=== PATIENT | male | born 1950 | race Caucasian/White ===

== ENCOUNTER 2019-04-07 10:31 | Outpatient (CLI) | payer OTHER, SELFPAY ==
--- NOTE | 2019-04-07 10:42 | MR_ITS ---
WS: [id number] MRI LUMBAR SPINE NONCONTRAST TECHNIQUE: Sagittal T1, T2 and STIR imaging. Axial T1 and T2 imaging. CLINICAL INFORMATION: LOW BACK PAIN COMPARISON: None. FINDINGS: Exaggeration normal lumbar lordosis. Reversal normal lumbar lordosis at the thoracolumbar junction. C hronic appearing anterior wedging with partial ankylosis at T10-T12. Focal kyphosis at this level. Mi ld chronic compression superior endplate L4 with fatty marrow changes. Severe spinal canal narrowing L4-5 L1-L2: Mild annular bulging with slight effacement of ventral thecal sac. Narrowing of the subarticul ar recess. Mild facet arthropathy. Foramen are patent. L2-L3: Mild annular bulging with narrowing of the left subarticular recess. Moderate facet arthropath y. Mild left and no significant right foraminal narrowing. L3-L4: Mild annular bulging with a small central disc protrusion. Moderate central canal stenosis. Mi ld right and no significant left foraminal narrowing. Moderate facet arthropathy. L4-L5: Mild disc bulging in combination with facet arthropathy and ligament flavum hypertrophy result s in severe central canal stenosis. Small bilateral facet effusions. Severe right and mild left danita inal narrowing. Small far right lateral 7 mm synovial cyst does not significantly affect the thecal s ac or nerve roots. L5-S1: Mild annular bulging with slight impingement on traversing right greater than left S1 nerve ro ot nerve roots. Mild right and no significant left foraminal narrowing. Small left lateral synovial c yst measuring 9 mm contacts the far exiting left L5 nerve root. Moderate facet arthropathy. Left renal cyst. Mild chronic biconcave compression at T6 seen on the [employer] imaging. MR/MR lumbar spine wo con* [id number] IMPRESSION: 1. Chronic compression with anterior wedging at T11-T12 with partial ankylosis . This results in focal kyphosis at the T10-T12 levels. 2. Severe central canal stenosis L4-5 due to disc bulging with facet arthropat hy and ligamentum flavum flavum hypertrophy. 3. Right foraminal disc protrusion with severe right L4-5 foraminal narrowing. 4. Disc bulging L5-S1 impinges the right S1 nerve root with mild right foramin al narrowing. 5. 9 mm synovial cyst L5-S1 slightly contacts the exiting left L5 nerve root. 6. Moderate central canal stenosis L3-4 with a small central disc protrusion.
== END 2019-04-07 10:32 | disposition home or self-care (01) ==
LOC: RADWPI 10:38
PROVIDERS: Family Provider Emergency Medicine Emergency Medical Services; PCP Emergency Medicine Emergency Medical Services; Visit Provider Emergency Medicine Emergency Medical Services
DX: M43.24 Fusion of spine, thoracic region (principal); M48.061 Spinal stenosis, lumbar region without neurogenic claudication; M51.26 Other intervertebral disc displacement, lumbar region; M71.38 Other bursal cyst, other site
CPT/HCPCS: 72148

== ENCOUNTER 2020-03-22 15:10 | Outpatient (CLI) | payer OTHER, SELFPAY ==
--- NOTE | 2020-03-22 15:19 | USCV_ITS ---
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 Mild atheromatous plaque right carotid bulb/ICA. Left ICA stenosis <50%. Mild atheromatous plaque left carotid bulb/ICA. Normal antegrade Doppler flow noted in the right vertebral artery. Normal antegrade Doppler flow noted in the left vertebral artery. Anthony Garcia MD (Electronically Signed) Final Date: 22 March 2020 17:06 S
== END 2020-03-22 15:11 | disposition home or self-care (01) ==
PROVIDERS: Family Provider Emergency Medicine Emergency Medical Services; PCP Emergency Medicine Emergency Medical Services; Visit Provider Emergency Medicine Emergency Medical Services
DX: H91.91 Unspecified hearing loss, right ear (principal); I65.23 Occlusion and stenosis of bilateral carotid arteries
CPT/HCPCS: 93880

== ENCOUNTER 2021-06-16 13:46 | Outpatient (CLI) | payer OTHER, SELFPAY ==
--- NOTE | 2021-06-16 13:59 | MR_ITS ---
WS: [id number] MRI LUMBAR SPINE NONCONTRAST TECHNIQUE: Sagittal T1, T2 and STIR imaging. Axial T1 and T2 imaging. CLINICAL INFORMATION: LOW BACK PAIN COMPARISON: MRI April 07, 2019 FINDINGS: Exaggeration normal lumbar lordosis. Reversal normal lumbar lordosis at the thoracolumbar junction un changed. Chronic appearing anterior wedging with partial ankylosis at T10-T12. Focal kyphosis at this level unchanged from 2020. Mild chronic compression superior endplate L4 is stable. No new compressi on. Severe spinal canal narrowing L4-5 L1-L2: Mild annular bulging with slight effacement of ventral thecal sac. Narrowing of the subarticul ar recess bilaterally. Mild facet arthropathy. Foramen are patent. L2-L3: Mild annular bulging. Slight effacement of ventral thecal sac. Mild narrowing of the subarticu lar recess bilaterally. Mild to moderate facet arthropathy. Foramen are patent. L3-L4: Mild annular bulging with moderate central canal stenosis. Moderate facet arthropathy with lig amentum flavum flavum hypertrophy. Moderate RIGHT and mild LEFT foraminal narrowing. L4-L5: Severe central canal stenosis slightly progressed compared to April 07, 2019. Almost complet e effacement of the thecal sac. Advanced facet arthropathy with ligamentum flavum hypertrophy. Imping ement traversing L5 nerve roots bilaterally. Moderate RIGHT and mild to moderate LEFT foraminal narro wing. L5-S1: Mild disc bulging eccentric to the RIGHT. Slight contact of the traversing RIGHT S1 nerve root . Moderate facet arthropathy. Mild RIGHT and no significant LEFT foraminal narrowing. Far lateral 9 m m synovial cyst slightly encroaches on the far exiting LEFT L5 nerve root unchanged. Partially visualized LEFT renal cyst measuring 3.1 cm. Visualized pelvic bony structures: Normal. Paravertebral soft tissues: Normal. Mild chronic compression superior endplate T6 is unchanged. MR/MR lumbar spine wo con* [id number] IMPRESSION: 1. Severe central canal stenosis L4-L5 with near complete effacement of the th ecal sac is progressed slightly compared to March 30, 2019. Recommend neurosu rgery consultation. 2. Moderate RIGHT L4-L5 foraminal narrowing with impingement on the exiting RI GHT L5 nerve root. 3. Moderate central canal stenosis L3-L4 is unchanged. 4. Mild central canal stenosis L1-L2. 5. Moderate facet arthropathy L4-L5 and L5-S1. 6. Disc bulging L5-S1 slightly contacts the RIGHT S1 nerve root unchanged. 7. No other significant changes compared to previous.
== END 2021-06-16 13:47 | disposition home or self-care (01) ==
PROVIDERS: PCP Emergency Medicine Emergency Medical Services; Visit Provider Emergency Medicine Emergency Medical Services
DX: M48.061 Spinal stenosis, lumbar region without neurogenic claudication (principal); M47.816 Spondylosis without myelopathy or radiculopathy, lumbar region; M47.817 Spondylosis without myelopathy or radiculopathy, lumbosacral region; M51.27 Other intervertebral disc displacement, lumbosacral region
CPT/HCPCS: 72148

== ENCOUNTER → 2021-06-22 12:50 | Outpatient (BNVA) | payer OTHER, SELFPAY | PROVIDERS: PCP Emergency Medicine Emergency Medical Services; Visit Provider Orthopaedic Surgery | DX: M48.062 Spinal stenosis, lumbar region with neurogenic claudication (principal) | CPT/HCPCS: 72120; 99203; 99204 ==

== ENCOUNTER 2024-03-30 12:16 | Outpatient (CLI) | payer OTHER, SELFPAY ==
--- NOTE | 2024-03-30 12:28 | USCV_ITS ---
Igor Almazan Age: 73 Gender: M : 1950 Exam Date: 03/30/2024 13:09 Ordering Phys: Shauna Packer MD Technologist: [employer]R Exam Location: [facility] – [place] Indication: 50% stenosis 3 yrs ago Risk Factors: Previous Vascular Surgery: Right Brachial BP: / Left Brachial BP: / Right Left Velocity (cm/s) Spectral Plaque Velocity (cm/s) Spectral Plaque Syst/Diast Broadening Syst/Diast Broadening 64.50/ 19.30 Prox CCA 61.20 / 12.00 77.50/ 18.00 Mid CCA 62.20 / 14.10 66.20/ 18.10 Distal CCA 55.30 / 13.70 47.40/ 17.70 Prox ICA 34.80 / 12.40 48.10/ 19.10 Mid ICA 31.50 / 12.20 41.60/ 16.50 Distal ICA 44.70 / 17.20 83.00 ECA 46.70 0.70 ICA/CCA 0.60 Antegrade Vertebral Antegrade 35.00/ 9.40 cm/s 33.70/ 8.50 cm/s Tri Subclavian Tri 59.90 94.70 FINDINGS Comparison:. 03/22/20 No significant elevation of systolic or diastolic velocities. Waveforms are normal. Minimal carotid atherosclerosis. CONCLUSIONS No change seen from prior study. Bilateral ICA stenosis less than 50%. Dr. Devora Cabrera DO (Electronically Signed) Final Date: 30 March 2024 13:48 S
== END 2024-03-30 12:17 | disposition home or self-care (01) ==
LOC: RAD 12:20
PROVIDERS: PCP Emergency Medicine Emergency Medical Services; Visit Provider Family Medicine
DX: Z01.89 Encounter for other specified special examinations (principal); I65.23 Occlusion and stenosis of bilateral carotid arteries
CPT/HCPCS: 93880